=== PATIENT | female | born 1995 | race Caucasian/White ===

== ENCOUNTER 2020-05-07 15:26 | Emergency (ER) | payer OTHER ==
[~2020-05-07] VITALS: Ht 157.5 cm; Wt 98.9 kg
[2020-05-07] MEDS ORDERED: PRENATABS FA T1 EACH (15:44)
== END 2020-05-07 21:40 | disposition home or self-care (01) ==
LOC: ER 15:26
DX: O26.892 Other specified pregnancy related conditions, second trimester (principal); R10.31 Right lower quadrant pain; Z34.02 Encounter for supervision of normal first pregnancy, second trimester

== ENCOUNTER 2020-07-11 16:51 | Inpatient (IN) | payer OTHER ==
[~2020-07-11] VITALS: Ht 157.5 cm; Wt 0.5 kg
[~2020-07-11 16:51] MED LIST: PRENATABS FA T1 EACH
[2020-07-12] MEDS ORDERED: ASA81 MG PO (14:05)
[2020-07-12] MEDS ORDERED: PRESERVISION L1 EACH PO (14:06)
[2020-07-12] MEDS ORDERED: TUMERSAID TABL1 EACH PO (14:08)
[2020-07-12] MEDS ORDERED: ATABEX DHA 200200 MG PO (14:09)
[2020-07-16] MEDS ORDERED: IBUPROFEN800 MG PO (07:05)
[2020-07-16] MEDS ORDERED: SENOKOT8.6 M1 PO (07:05)
[2020-07-16] MEDS ORDERED: SIMETHICONE125 M1 PO (07:05)
== END 2020-07-16 13:47 | disposition home or self-care (01) | DRG 788 ==
LOC: OBS/DEL 16:51 → O/R 07-12 12:57 → SURG-SUITE 07-12 12:57 → LDR 07-12 12:57 → SURG-SUITE 07-12 17:16 → LDR 07-12 17:23 → O/R 07-13 08:28 → SURG-SUITE 07-13 09:54
PROVIDERS: Obstetrics & Gynecology; ADMIT Obstetrics & Gynecology; ATTEND Obstetrics & Gynecology
PROC: 4A1HXFZ Monitoring of Products of Conception, Cardiac Rhythm, External Approach (ICD-10-PCS; 2020-07-12)
PROC: 10D00Z1 Extraction of Products of Conception, Low, Open Approach (ICD-10-PCS; principal; 2020-07-13 09:00)
DX: O76 Abnormality in fetal heart rate and rhythm complicating labor and delivery (principal); O36.8320 Maternal care for abnormalities of the fetal heart rate or rhythm, second trimester, not applicable or unspecified; O36.5920 Maternal care for other known or suspected poor fetal growth, second trimester, not applicable or unspecified; Z3A.27 27 weeks gestation of pregnancy; Z37.0 Single live birth; Z20.822 Contact with and (suspected) exposure to COVID-19

== ENCOUNTER 2020-08-12 19:30 | Emergency (ER) | payer OTHER ==
[~2020-08-12] VITALS: Ht 157.5 cm; Wt 101.2 kg
[~2020-08-12 19:30] MED LIST changes: +ASA81 MG PO; +ATABEX DHA 200200 MG PO; +IBUPROFEN800 MG PO; +PRESERVISION L1 EACH PO; +SENOKOT8.6 M1 PO; +SIMETHICONE125 M1 PO; +TUMERSAID TABL1 EACH PO
[2020-08-12] MEDS ORDERED: SIMETHICONE80 MG (19:52)
[2020-08-12] MEDS ORDERED: ATABEX DHA 200200 MG (19:53)
== END 2020-08-12 22:57 | disposition home or self-care (01) ==
LOC: ER 19:30
DX: R07.89 Other chest pain (principal); F41.8 Other specified anxiety disorders

== ENCOUNTER → 2020-09-18 11:10 | Outpatient (CLI) | payer OTHER ==
[~2020-09-18 11:10] MED LIST changes: +ATABEX DHA 200200 MG; +NORETHINDRONE0.35 MG PO; +PANTOPRAZOLE SO40 MG PO; +SIMETHICONE80 MG
== END | disposition home or self-care (01) ==
LOC: LAB 11:10
PROVIDERS: ATTEND General Practice
DX: E03.8 Other specified hypothyroidism (principal); E55.9 Vitamin D deficiency, unspecified; D64.9 Anemia, unspecified; N39.9 Disorder of urinary system, unspecified; E78.2 Mixed hyperlipidemia; K92.1 Melena; I11.9 Hypertensive heart disease without heart failure

== ENCOUNTER → 2020-10-07 | Outpatient (CLI) | payer OTHER | END | disposition home or self-care (01) | LOC: MAMO-SONO 08:30 → SONOGRAMA 09:35 | PROVIDERS: ATTEND General Practice | DX: K21.9 Gastro-esophageal reflux disease without esophagitis (principal); R10.11 Right upper quadrant pain ==

== ENCOUNTER 2020-11-28 10:58 | Outpatient (CLI) | payer OTHER ==
[~2020-11-28 10:58] MED LIST changes: -NORETHINDRONE0.35 MG PO; -PANTOPRAZOLE SO40 MG PO
== END 2020-11-28 11:13 | disposition home or self-care (01) ==
LOC: RAD 10:58
PROVIDERS: ATTEND General Practice
DX: R07.89 Other chest pain (principal)

== ENCOUNTER 2021-01-07 19:47 | Emergency (ER) | payer OTHER ==
[~2021-01-07] VITALS: Ht 157.5 cm; Wt 102.1 kg
[2021-01-07] MEDS ORDERED: PANTOPRAZOLE SO40 MG PO (20:01)
[2021-01-07] MEDS ORDERED: NORETHINDRONE0.35 MG PO (20:02)
== END 2021-01-07 23:25 | disposition home or self-care (01) ==
LOC: ER 19:47
DX: M94.0 Chondrocostal junction syndrome [Tietze] (principal); K21.9 Gastro-esophageal reflux disease without esophagitis; R07.9 Chest pain, unspecified; R06.02 Shortness of breath; R00.2 Palpitations

== ENCOUNTER 2022-04-08 02:20 | Emergency (ER) | payer OTHER ==
[~2022-04-08] VITALS: Ht 152.4 cm; Wt 104.3 kg
[~2022-04-08 02:20] MED LIST changes: +NORETHINDRONE0.35 MG PO; +PANTOPRAZOLE SO40 MG PO
[2022-04-08] MEDS ORDERED: VISTARIL50 MG PO (08:57)
== END 2022-04-08 09:17 ==
LOC: ER 02:20
DX: R00.2 Palpitations (principal)

== ENCOUNTER 2023-12-16 15:44 | Outpatient (CLI) | payer OTHER ==
[~2023-12-16 15:44] MED LIST changes: +VISTARIL50 MG PO
== END 2023-12-16 15:45 | disposition home or self-care (01) ==
LOC: PRENATAL 15:44
PROVIDERS: ATTEND Obstetrics & Gynecology Maternal & Fetal Medicine
DX: O44.00 Complete placenta previa NOS or without hemorrhage, unspecified trimester (principal); O34.219 Maternal care for unspecified type scar from previous cesarean delivery; O28.1 Abnormal biochemical finding on antenatal screening of mother; Z3A.21 21 weeks gestation of pregnancy

== ENCOUNTER 2024-01-26 14:13 | Outpatient (CLI) | payer OTHER | END 2024-01-26 14:15 | disposition home or self-care (01) | LOC: PRENATAL 14:13 | PROVIDERS: ATTEND Obstetrics & Gynecology Maternal & Fetal Medicine | DX: O26.849 Uterine size-date discrepancy, unspecified trimester (principal); O36.8199 Decreased fetal movements, unspecified trimester, other fetus; O99.891 Other specified diseases and conditions complicating pregnancy; O34.219 Maternal care for unspecified type scar from previous cesarean delivery; O28.1 Abnormal biochemical finding on antenatal screening of mother; Z3A.26 26 weeks gestation of pregnancy ==

== ENCOUNTER → 2024-03-02 13:55 | Outpatient (CLI) | payer OTHER | END | disposition home or self-care (01) | LOC: PRENATAL 13:55 | PROVIDERS: ATTEND Obstetrics & Gynecology Maternal & Fetal Medicine | DX: O26.849 Uterine size-date discrepancy, unspecified trimester (principal); O36.8199 Decreased fetal movements, unspecified trimester, other fetus; O34.219 Maternal care for unspecified type scar from previous cesarean delivery; O28.1 Abnormal biochemical finding on antenatal screening of mother; O99.019 Anemia complicating pregnancy, unspecified trimester; Z3A.32 32 weeks gestation of pregnancy ==

== ENCOUNTER 2025-01-30 11:16 | Outpatient (CLI) | payer OTHER | END 2025-01-30 11:17 | disposition home or self-care (01) | LOC: PRENATAL 11:16 | PROVIDERS: ATTEND Obstetrics & Gynecology Maternal & Fetal Medicine | DX: O26.849 Uterine size-date discrepancy, unspecified trimester (principal); O34.219 Maternal care for unspecified type scar from previous cesarean delivery; Z3A.15 15 weeks gestation of pregnancy ==

== ENCOUNTER → 2025-03-08 14:29 | Outpatient (CLI) | payer OTHER | END | disposition home or self-care (01) | LOC: PRENATAL 14:29 | PROVIDERS: ATTEND Obstetrics & Gynecology Maternal & Fetal Medicine | DX: O44.02 Complete placenta previa NOS or without hemorrhage, second trimester (principal); O34.219 Maternal care for unspecified type scar from previous cesarean delivery; Z3A.20 20 weeks gestation of pregnancy ==